=== PATIENT | female | born 1980 | race Caucasian/White ===

== ENCOUNTER 2018-03-31 12:10 | Emergency (ER) | payer OTHER ==
[~2018-03-31] VITALS: Ht 172.7 cm; Wt 121.6 kg
--- NOTE | 2018-03-31 14:04 | Diagnostic Imaging Report ---
History:Dizziness Comparison studies: None Technique: Axial images were obtained from the skull base to the vertex. Coronal and sagittal reconstructions obtained from the axial data. Dose modulation, iterative reconstruction, and/or weight based adjustment of the mA/kV was utilized to reduce the radiation dose to as low as reasonably achievable. Findings: Scalp/skull: No abnormalities. No fractures, blastic or lytic lesions. Extra-axial spaces: No masses. No fluid collections. Brain sulci: Appropriate for age. Ventricles: Normal in size and configuration. No hydrocephalus. Parenchyma: No abnormal densities. No masses, hemorrhage, acute or chronic cortical vascular insults. Sellar/suprasellar region: No abnormalities Craniocervical junction: Patent foramen magnum. No Chiari one malformation. IMPRESSION: No abnormalities . Signed by: DR Jerome Loaiza M.D. on 03/31/2018 2:00 PM
[2018-03-31 14:08] LABS: INR 0.86; PROTHROMBIN TIME 12.5 seconds (11.9-14.5)
[2018-03-31 14:09] LABS: PARTIAL THROMBOPLASTIN TIME 31.6 seconds (23.8-35.5)
[2018-03-31 14:12] LABS: BASOPHILS % 0.6 % (0.0-1.0); EOSINOPHILS # (AUTO) 0.3 (0.0-0.4); EOSINOPHILS % 4.7 % (0.0-6.0); HEMATOCRIT 35.5 % (34.2-44.1); HEMOGLOBIN 10.4 g/dL (12.0-16.0); LYMPHOCYTES # (AUTO) 1.7 (1.0-3.2); LYMPHOCYTES % 26.3 % (18.0-39.1); MEAN CORPUSCULAR HEMOGLOBIN 20.7 pg (28-32); MEAN CORPUSCULAR HGB CONC 29.3 g/dL (31-35); MEAN CORPUSCULAR VOLUME 70.6 fL (81-99); MONOCYTES # (AUTO) 0.6 (0.2-0.8); MONOCYTES % 9.3 % (4.4-11.3); NEUTROPHILS # (AUTO) 3.7 (2.1-6.9); NEUTROPHILS % 58.8 % (38.7-80.0); PLATELET COUNT 444 x10e3/uL (140-360); RED BLOOD COUNT 5.03 x10e6/uL (3.6-5.1); RED CELL DISTRIBUTION WIDTH 17.8 % (11.7-14.4)
--- NOTE | 2018-03-31 14:17 | Diagnostic Imaging Report ---
Examination: Single AP view of the chest. COMPARISON: None. INDICATION: Hypertension, left upper chest pain DISCUSSION: The lungs are well-inflated. Linear opacity in the left lung base compatible with subsegmental atelectasis. Borderline enlargement of the cardiac silhouette without overt pulmonary edema. No acute osseous abnormality. IMPRESSION: Borderline enlargement of the cardiac silhouette, which may be partially attributable to prominent epicardial fat along the right cardiophrenic sulcus. No evidence of vascular decompensation. Signed by: Dr. Samir Carrasco M.D. on 03/31/2018 2:14 PM
[2018-03-31 14:18] LABS: ALANINE AMINOTRANSFERASE 21 IU/L (0-55); ALBUMIN 4.1 g/dL (3.5-5.0); ALBUMIN/GLOBULIN RATIO 1.1 (0.8-2.0); ALKALINE PHOSPHATASE 62 IU/L (40-150); ANION GAP 9.5 mmol/L (8-16); BLOOD UREA NITROGEN 10 mg/dL (7-26); BUN/CREATININE RATIO 12 (6-25); CALCIUM 9.9 mg/dL (8.4-10.2); CARBON DIOXIDE 23 mmol/L (22-29); CHLORIDE 104 mmol/L (98-107); CREATINE KINASE 69 IU/L (29-168); CREATININE, SERUM 0.82 mg/dL (0.57-1.11); EST GLOMERULAR FILTRATION RATE > 60 ML/MIN (60-); GLUCOSE 89 mg/dL (74-118); POTASSIUM 3.5 mmol/L (3.5-5.1); SODIUM 133 mmol/L (136-145)
--- OUTSIDE RECORDS SUMMARY | 2018-03-31 14:19 | XMS REPORT | Clinical Summary ---
Author Author [facility] Organization [facility] Address Unknown Phone Unavailable Care Team Providers Care Mortgage Processing Manager Name Role Phone Asked, No Pcp PCP Unavailable Allergies Comments Active Allergy Reactions Severity Noted Date Fluorometholone 05/14/2017 Medications End Date Status Medication Sig Dispensed Refills Start Date Active montelukast (SINGULAIR) 0 10 mg tablet 7 Active ascorbic acid, vitamin C, 0 (VITAMIN C) 500 MG tablet 7 extended release CR tablet Active cetirizine (ZyrTEC) 10 MG 0 tablet 7 Active FERROUS FUMARATE 0 (FERROCITE ORAL) 7 Active ALBUTEROL SULFATE (PROAIR 0 HFA INHL) 7 Active meloxicam (MOBIC) 15 mg TAKE 1 TABLET 30 tablet 3 tablet BY MOUTH 8 DAILY. TAKE WITH FOOD 10/05/2017 Discontinued meloxicam (MOBIC) 15 mg Take 1 tablet 30 tablet 3 tablet (15 mg total) 8 by mouth daily for 30 days. Take with food Active Problems No known active problems Encounters Care Team Description Date Type Specialty Camacho Faith MD 10/05/2017 Refill Orthopedic Surgery Camacho Faith MD Acute pain of right knee (Primary Dx) 05/14/2017 Office Visit Orthopedic Surgery after 03/30/2017 Social History Date Tobacco Use Types Packs/Day Years Used Never Assessed Sex Assigned at Date Recorded Not on file Industry Job Start Date Occupation Not on file Not on file Not on file Travel End Travel History Travel Start No recent travel history available. Last Filed Vital Signs Not on file Plan of Treatment Health Maintenance Due Date Last Done Comments CERVICAL CANCER SCREENING 06/11/1999 INFLUENZA VACCINE 09/08/2017 Procedures Comments Procedure Name Priority Date/Time Associated Diagnosis OR ARTHROCENTESIS Routine 05/14/2017 Acute pain of right knee ASPIR&/INJ MAJOR JT/BURSA 3:30 PM CDT W/O US XR KNEE 4+ VW RIGHT Routine 05/14/2017 Acute pain of right knee 3:10 PM CDT after 03/30/2017 Results * Large Joint Arthrocentesis (05/14/2017 3:30 PM CDT) Narrative Performed At Camacho Faith MD 05/14/20174:50 PM Large Joint Arthrocentesis Consent given by: patient Site marked: site marked Timeout: Immediately prior to procedure a time out was called to verify the correct patient, procedure, equipment, instructional support assistant and site/side marked as required Supporting Documentation Indications: pain Procedure Details Preparation: Patient was prepped and draped in the usual sterile fashion Ultrasound guided: no Platelet Rich Plasma Used: no PRP Used Location: knee - R knee Right side: Needle size: 25 G (25 gauge) Approach: anteromedial Right knee medications administered: 1 mL lidocaine 10 mg/mL (1 %); 3 mg betamethasone acetate & sodium phosphate 6 mg/mL Aspirate amount: 0 mL Aspirate: clear Patient tolerance: patient tolerated the procedure well with no immediate complications * XR Knee 4+ Vw Right (05/14/2017 3:10 PM CDT) Narrative Performed At [facility] X-rays of the right knee are done.PA, lateral, oblique, standing AP notch view demonstrate no fracture nor dislocation. 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 X-rays reveal mild arthritis of the lateral compartment. X-rays reveal mild arthritis of the patellofemoral compartment. There is a fabella present. Performing Organization Address [facility] [address] [place] [address] after 03/30/2017 Insurance Payer Benefit Subscriber ID Type Phone Address Plan / Group AETNA AETNA xxxxxxxxxx HMO HMO,POS,EP O, MC/EC Advance Directives Patient has advance care planning documents on file. For more information, yaakov alexis contact: Gatito [place] [address] [place] [address]
--- OUTSIDE RECORDS SUMMARY | 2018-03-31 14:19 | XMS REPORT ---
[facility] Address Unknown Phone Unavailable Care Team Providers Care Pressurised Container Filler Name Role Phone Zunilda NGUYEN Unavailable Unavailable Problems This patient has no known problems. Allergies, Adverse Reactions, Alerts This patient has no known allergies or adverse reactions. Medications This patient has no known medications. Results Test Description Test Time Test Comments Text Results Atomic Results Result Comments CHEST SINGLE (PORTABLE) 2018-03-31 14:12:00 [place] [id number] Patient Name: ZEENAT CARLISLE MR #: [id number] : 1980 Age/Sex: 37/F Req #: [id number] Adm Physician: Ordered by: TARUN HAMILTON GEOTHERMAL INSTALLER Report #: [id number] Location: ER Room/Bed: Procedure: [id number] DX/CHEST SINGLE (PORTABLE) Exam Date: 03/31/18 Exam Time: 1320 REPORT STATUS: Signed Examination: Single AP view of the chest. COMP ARISON: None. INDICATION: Hypertension, left upper chest pain DISCUSSION: The lungs are well-inflated. Linear opacity in the left lung base compatible with subsegmental atelectasis. Borderline enlargement of the cardiac silhouette without overt pulmonary edema. No acute osseous abnormality. IMPRESSION: Borderline enlargement of the cardiac silhouette, which may be partially attributable to prominent epicardial fat along the right cardiophrenic sulcus. No evidence of vascular decompensation. Signed by: Dr. Umer Lamas M.D. on 03/31/2018 2:14 PM Dictated By: UMER LAMAS MD 13 Transcribed By: SYLVIA on 03/31/181413 COPY TO: TARUN HAMILTON NP CT BRAIN WO 2018-03-31 13:59:00 [place] [id number] Patient Name: ZEENAT CARLISLE MR #: [id number] : 1980 Age/Sex: 37/F Req #: [id number] Adm Physician: Ordered by: TARUN HAMILTON NP Report #: [id number] Location: ER Room/Bed: Procedure: [id number] CT/CT BRAIN WO Exam Date: 03/31/18 Exam Time: 1300 REPORT STATUS: Signed History:Dizziness Comparison studies: None Technique: Axial images were obtained from the skull base to the vertex. Coronal and sagittal reconstructions obtained from the axial data. Dose modulation, iterative reconstruction, and/or weight based adjustment of the mA/kV was utilized to reduce the radiation dose to as low as reasonably achievable. Findings: Scalp/skull: No abnormalities. No fractures, blastic or lytic lesions. Extra-axial spaces: No masses. No fluid collections. Brain sulci: Appropriate for age. Ventricles: Normal in size and configuration. No hydrocephalus. Parenchyma: No abnormal densities. No masses, hemorrhage, acute or chronic cortical vascular insults. Sellar/suprasellar region: No abnormalities Craniocervical junction: Patent foramen magnum. No Chiari one malformation. IMPRESSION: No abnormalities . Signed by: DR Jerome Loaiza M.D. on 03/31/2018 2:00 PM Dictated By: JEROME RODRIGUEZ MD 1400 Transcribed By: SYLVIA on 03/31/18 1400 COPY TO: TARUN HAMILTON NP
[2018-03-31 14:57] LABS: STREPTOCOCCUS GRP A ANTIGEN NEGATIVE (NEGATIVE)
[2018-03-31 15:10] LABS: BILIRUBIN,URINE NEGATIVE (NEGATIVE); CLARITY,URINE CLEAR (CLEAR); COLOR,URINE YELLOW (YELLOW); KETONES,URINE NEGATIVE (NEGATIVE); LEUKOCYTE ESTERASE ,URINE TRACE (NEGATIVE); NITRITE,URINE NEGATIVE (NEGATIVE); PREGNANCY TEST, URINE NEGATIVE (NEGATIVE); PROTEIN,URINE DIPSTICK NEGATIVE (NEGATIVE); URINE UROBILINOGEN 0.2 mg/dL (0.2 - 1)
[2018-03-31 15:16] LABS: INFLUENZAE A&B ANTIGEN (RAPID) NEGATIVE (NEGATIVE)
[2018-03-31 15:23] LABS: BACTERIA,URINE RARE /HPF; EPITHELIAL CELLS,URINE FEW /LPF
[2018-03-31 19:59] VITALS: BP 131/74
== END 2018-03-31 17:10 | disposition home or self-care (01) ==
LOC: ER 14:17
DX: R07.89 Other chest pain (principal); R42 Dizziness and giddiness; I10 Essential (primary) hypertension; J45.909 Unspecified asthma, uncomplicated; D64.9 Anemia, unspecified
CPT/HCPCS: 36415; 70450; 71045; 80053; 81001; 81025; 82550; 82553; 83518; 84484; 85025; 85610; 85730; 87070; 87400; 93005; 99284